=== PATIENT | female | born 1935 | race Two or more races ===

== ENCOUNTER 2020-09-26 10:15 | Inpatient (IN) | payer OTHER ==
[~2020-09-26] VITALS: Ht 167.6 cm; Wt 62.5 kg
[~2020-09-26 10:15] MED LIST: ERGO1CAP6 PO; HYDR25TA4 PO; LISI-646 PO; METF-370 PO; PRAV20TA3 OR
[2020-09-26] MEDS ORDERED: DexAMETHasone SOD PHOS 10MG/1ML VIAL INJ IV ONE (10:30)
[2020-09-26] MEDS ORDERED: SODIUM CHLORIDE 0.9% 1,000 ML IV ONE ×2 (10:30)
[2020-09-26] MEDS ORDERED: DOXYCYCLINE 100MG/250ML 250 ML IV ONE (10:30)
[2020-09-26 10:52] LABS: Basophils # (auto) 0 10 ^3/uL (0-0.2); Basophils % (auto) 0.3 % (0.0-2.0); Eosinophils # (auto) 0 10 ^3/uL (0-0.8); Eosinophils % (auto) 0.2 % (0.0-7.0); Hematocrit 42.7 % (36.0-46.0); Hemoglobin 14.3 g/dL (12.2-16.2); Lymphocytes # (auto) 1.2 10 ^3/uL (0.4-5.4); Lymphocytes % (auto) 16.6 % (10.0-50.0); Mean Corpuscular Hemoglobin 28.1 pg (28.0-32.0); Mean Corpuscular Hgb Conc. 33.5 g/dL (32.0-36.0); Mean Corpuscular Volume 83.9 fL (80.0-100.0); Monocytes # (auto) 1.1 10 ^3/uL (0-1.3); Neutrophils # (auto) 4.8 10 ^3/uL (1.6-8.6); Neutrophils % (auto) 67.9 % (37.0-80.0); Nucleated Red Blood Cells % 0.1 %; Platelet Count (auto) 232 10^3/uL (140-450); Red Blood Cells 5.09 10^6/uL (4.0-5.20); Red Cell Distribution Width 14.2 % (11.8-14.3)
[2020-09-26 11:13] LABS: Albumin 3.2 g/dL (3.4-5.0); Anion Gap 8 (5-15); Blood Urea Nitrogen 18 mg/dL (7-18); Calcium 8.6 mg/dL (8.5-10.1); Carbon Dioxide 23 mmol/L (21-32); Chloride 102 mmol/L (98-107); Glucose 98 mg/dL (74-106); Potassium 3.7 mmol/L (3.5-5.1); Sodium 133 mmol/L (136-145)
[2020-09-26 11:22] LABS: Alanine Aminotransferase 31 U/L (13-56); Alkaline Phosphatase 57 U/L (45-117); Aspartate Aminotransferase 35 U/L (15-37); BUN/Creatinine Ratio 16.5; Bilirubin, Total 0.9 mg/dL (0.2-1.0); CRP High Sensitivity 6.83 mg/dL (< 0.3); GFR African American 62 mL/min; GFR Non-African American 51 mL/min; Lactate Dehydrogenase 270 U/L (84-246); Total Protein 6.6 g/dL (6.4-8.2)
[2020-09-26] MEDS ORDERED: NITROGLYCERIN 0.4 MG SL TAB SL PRN ×2 (18:45→19:00)
[2020-09-26] MEDS ORDERED: MORPHINE SULF INJ 2 MG/ML SYRINGE 1ML IV PRN ×3 (18:45→19:00)
[2020-09-26] MEDS ORDERED: ASCO500T11 PO (18:53)
[2020-09-26] MEDS ORDERED: CHOL20007 PO (18:53)
[2020-09-26] MEDS ORDERED: ALBUAER3 IN (18:53)
[2020-09-26] MEDS ORDERED: HYDROcodone-ACET 5/325MG TAB PO PRN (19:00)
[2020-09-26] MEDS ORDERED: SODIUM CHLORIDE 0.9% 1,000 ML IV SCH (19:00)
[2020-09-26] MEDS ORDERED: ENOXAPARIN SOD 100 MG/1 ML SYRINGE SC ONE (19:00)
[2020-09-26] MEDS ORDERED: ONDANSETRON HCL 4 MG/2 ML VIAL IV PRN (19:00)
[2020-09-26] MEDS ORDERED: LORazepam 0.5 MG TAB PO PRN (19:00)
[2020-09-26] MEDS ORDERED: VANCOMYCIN PER PHARMACY 0 MG IV SCH (19:00)
[2020-09-26] MEDS ORDERED: ACETAMINOPHEN 325 MG TAB PO PRN (19:00)
[2020-09-26] MEDS ORDERED: THIAMINE 100mg/ml INJ (200mg/2ml VIAL) IV ONE (19:00)
[2020-09-26] MEDS ORDERED: ACETAMINOPHEN 500 MG TAB PO PRN (19:00)
[2020-09-26] MEDS ORDERED: ALUM & MAG HYDROX-SIMETH LIQ(MAALOX) 30 ML PO PRN (19:00)
[2020-09-26] MEDS ORDERED: DOCUSATE SOD 100 MG CAP PO PRN (19:00)
[2020-09-26] MEDS ORDERED: MEROPENEM 500MG IVPB 50 ML IV ONE (19:00)
[2020-09-26] MEDS: MEROPENEM 1GM IVPB 100 ML IV SCH (20:03)
[2020-09-26] MEDS: CHOLECALCIFEROL (VITD3) 2,000 UNIT CAP PO SCH (20:03)
[2020-09-26] MEDS: ZINC SULFATE 220mg CAP or TAB PO SCH (20:03)
[2020-09-26] MEDS: FAMOTIDINE (10MG/ML) 2ML VL IV SCH (20:03)
[2020-09-26] MEDS ORDERED: DEXTROSE (50%) 50ML SYRG IV PRN (20:45)
[2020-09-26] MEDS ORDERED: ATORVASTATIN 20 MG TAB PO SCH (22:00)
[2020-09-26] MEDS ORDERED: VANCOMYCIN 1GM/250ML 250 ML IV ONE (22:00)
[2020-09-26] MEDS: ACCU-CHEK COMFORT CURVE STRIP VI SCH (22:30)
[2020-09-26] MEDS: methylPREDNISolone SOD SUCC 40 MG/ML VL IV SCH (22:55)
[2020-09-26] MEDS: InsuLIN REG 1unit/0.01ml Soln (100units/ml) SC SCH (23:00)
[2020-09-26] MEDS: BUDESONIDE (INHALATION) 180 MCG IH IN SCH (23:21)
--- NOTE | 2020-09-26 23:30 | NUR ---
Telemetry admit from [facility]LEN[facility] admitted to Telemetry unit after SBAR received. Patient oriented to Elton mathis RN, unit, room 247, bed B, and unit policies regarding patient care and visiting hours. Patient now on continuous telemetry monitoring, tele box #2 and telemetry reading on arrival to unit is Afib 75. Patient VS taken, weighed by bedscale and encouraged to call if they need something. All questions and concerns addressed, patient verbalized understanding.
[2020-09-26 23:35] VITALS: BP 132/85
[2020-09-26] MEDS: hydrALAZINE HCL 20 MG/ML VL IV SCH (23:45)
[2020-09-27 01:38] VITALS: BP 132/85
[2020-09-27 01:49] LABS: Cholesterol 89 mg/dL (< 200); HDL Cholesterol 42 mg/dL (40-59); LDL Cholesterol 44 mg/dL (< 100); Triglycerides 73 mg/dL (< 150)
[2020-09-27 04:51] VITALS: BP 105/56
[2020-09-27] MEDS ORDERED: FUROSEMIDE 20 MG/2 ML VIAL IV SCH (06:00)
[2020-09-27] MEDS: ACCU-CHEK COMFORT CURVE STRIP VI SCH ×2 (06:29→11:27)
[2020-09-27] MEDS: InsuLIN REG 1unit/0.01ml Soln (100units/ml) SC SCH ×3 (06:29→11:33)
[2020-09-27 06:48] LABS: Potassium 3.9 mmol/L (3.5-5.1)
[2020-09-27] MEDS: BUDESONIDE (INHALATION) 180 MCG IH IN SCH (06:51)
[2020-09-27 06:55] LABS: Albumin 2.8 g/dL (3.4-5.0); Basophils # (auto) 0 10 ^3/uL (0-0.2); Basophils % (auto) 0.1 % (0.0-2.0); Bilirubin, Total 0.6 mg/dL (0.2-1.0); Calcium 8.4 mg/dL (8.5-10.1); Eosinophils # (auto) 0 10 ^3/uL (0-0.8); Hematocrit 41.6 % (36.0-46.0); Hemoglobin 14.2 g/dL (12.2-16.2); Lymphocytes # (auto) 0.7 10 ^3/uL (0.4-5.4); Lymphocytes % (auto) 11.1 % (10.0-50.0); Mean Corpuscular Hemoglobin 28.6 pg (28.0-32.0); Mean Corpuscular Hgb Conc. 34.2 g/dL (32.0-36.0); Mean Corpuscular Volume 83.6 fL (80.0-100.0); Monocytes # (auto) 0.6 10 ^3/uL (0-1.3); Monocytes % (auto) 10.7 % (0.0-12.0); Neutrophils # (auto) 4.7 10 ^3/uL (1.6-8.6); Neutrophils % (auto) 78.1 % (37.0-80.0); Nucleated Red Blood Cells % 0.1 %; Platelet Count (auto) 232 10^3/uL (140-450); Red Blood Cells 4.97 10^6/uL (4.0-5.20); Red Cell Distribution Width 14.1 % (11.8-14.3)
[2020-09-27] MEDS: MEROPENEM 1GM IVPB 100 ML IV SCH (06:59)
[2020-09-27] MEDS: methylPREDNISolone SOD SUCC 40 MG/ML VL IV SCH (06:59)
[2020-09-27] MEDS: hydrALAZINE HCL 20 MG/ML VL IV SCH ×2 (07:05→12:00)
--- NOTE | 2020-09-27 08:00 | NUR ---
Opening Shift Note Assumed care of patient, awake, alert and oriented X1, to self, confused but easily reoriented. No S/S of distress/SOB or pain. Tele# 1, sinus rhythm @ 71 bpm. IV to right antecubital, 20 gauge, patent and infusing 0.9% NS @ 75 ml/hr. Instructed on POC and to call for assist PRN, verbalized understanding. Bed locked, in lowest position, call light within reach, bed alarm on for patient safety, will continue to monitor for changes Q1hr and PRN.
--- NOTE | 2020-09-27 08:00 | NUR ---
O2 Patient on room air with sats @ 96%.
[2020-09-27 08:55] VITALS: BP 107/75
--- NOTE | 2020-09-27 09:30 | NUR ---
Call placed to Dr Izabela Austin to verify and clarify orders. New orders received and followed through.
[2020-09-27] MEDS: FAMOTIDINE (10MG/ML) 2ML VL IV SCH (09:34)
--- NOTE | 2020-09-27 09:45 | NUR ---
PULMONARY Call placed to Dr Fregoso, informed Dr Izabela Austin is requesting Pulmonary clearance. Per Dr Fregoso, patient is clear from Pulmonary but recommends patient to be sent home on a short steroid therapy. Communication order placed.
[2020-09-27] MEDS ORDERED: HCTZ 25 MG TAB PO SCH (10:00)
[2020-09-27] MEDS ORDERED: LISINOPRIL 20 MG TAB PO SCH (10:00)
[2020-09-27] MEDS ORDERED: MEROPENEM 500MG IVPB 50 ML IV SCH (10:00)
[2020-09-27] MEDS ORDERED: PRAVASTATIN SODIUM 20 MG TAB PO SCH ×2 (10:00→22:00)
[2020-09-27] MEDS ORDERED: ASPirin 81 mg TAB PO SCH (10:00)
[2020-09-27] MEDS ORDERED: ASCORBIC ACID 500 MG TAB PO SCH (10:00)
[2020-09-27] MEDS ORDERED: DOXYCYCLINE 100 MG TAB/CAP PO SCH (10:00)
[2020-09-27] MEDS ORDERED: ENOXAPARIN SOD 100 MG/1 ML SYRINGE SC SCH (10:00)
[2020-09-27] MEDS ORDERED: DexAMETHasone 4 MG TAB PO SCH (10:00)
[2020-09-27] MEDS ORDERED: THIAMINE 100mg/ml INJ (200mg/2ml VIAL) IV SCH (10:00)
[2020-09-27] MEDS: ZINC SULFATE 220mg CAP or TAB PO SCH (10:14)
[2020-09-27] MEDS: CHOLECALCIFEROL (VITD3) 2,000 UNIT CAP PO SCH ×2 (10:14→11:34)
[2020-09-27] MEDS ORDERED: ALBUTEROL SULF HFA 90MCG INH 200DOSE IN SCH ×2 (12:00→14:00)
--- NOTE | 2020-09-27 12:15 | NUR ---
ROUNDS Dr Izabela Austin at bedside for rounds, new orders received and followed through. Patient updated on plan of care, verbalized understanding.
[2020-09-27] MEDS ORDERED: HYDR25TA4 PO (12:42)
[2020-09-27] MEDS ORDERED: ALBUAER3 IN (12:42)
[2020-09-27] MEDS ORDERED: DEXA6TAB6 PO (12:42)
[2020-09-27] MEDS ORDERED: LISI-646 PO (12:42)
[2020-09-27] MEDS ORDERED: ZINC220T6 PO (12:42)
[2020-09-27] MEDS ORDERED: ASCO500T11 PO (12:42)
[2020-09-27] MEDS ORDERED: CHOL1CAP47 PO (12:42)
[2020-09-27] MEDS ORDERED: DOXY-338 PO (12:43)
[2020-09-27 13:00] VITALS: BP 122/57
--- NOTE | 2020-09-27 13:05 | NUR ---
[employer]TRAS[employer] line service technician at bedside.
[2020-09-27] MEDS ORDERED: IOHEXOL 350 MG/ML 100ML IJ ONE (14:54)
--- NOTE | 2020-09-27 15:43 | NUR ---
Assessment Patient is an 85-year-old female who is alert and oriented. Prior to admission patient lived home with family and functioned independently. Patient can care for her own ADL's. Patient does not use any medical equipment now. Per patient she will return home to her prior living arrangements post discharge and family will transport patient home. Advised patient there is a social service consult for home health safety evaluation and pulse Ox check daily for the next 3 days. Informed patient she has the right to participate in all discharge planning. Patient verbalized understanding and agreed to discharge plan. Faxed clinical information to [facility] and [facility] medical group. Per Henny with [facility] patient has been accepted and service to start within 24-48hrs upon d.c . Addendum: 09/27/20 at 1547 by MAXIMO VALADEZ Amended: Links added.
[2020-09-27 17:38] VITALS: BP 122/57
--- NOTE | 2020-09-27 18:16 | NUR ---
Discharge instructions given as ordered. Encourage to follow up with PMD as instructed. All questions and concerns addressed. Patient verbalized understanding. Medication reconciliation form completed and copy given to patient. IV removed with catheter intact, pressure dressing applied. Telemetry unit returned to ICU. Patient awaiting transportation.
--- NOTE | 2020-09-27 18:35 | NUR ---
Patient taken to vehicle via wheelchair with all personal belongings, accompanied by staff and family member. No distress noted at time of departure.
== END 2020-09-27 18:38 | disposition home health service (06) | DRG 177 ==
LOC: ER 10:15 → EDBD 10:15 → TELE-EAST 19:10
PROVIDERS: ADMIT Hospitalist; ATTEND Internal Medicine
DX: U07.1 COVID-19 (principal); J12.89 Other viral pneumonia; J96.01 Acute respiratory failure with hypoxia; E87.1 Hypo-osmolality and hyponatremia; E44.1 Mild protein-calorie malnutrition; J44.0 Chronic obstructive pulmonary disease with (acute) lower respiratory infection; N17.9 Acute kidney failure, unspecified; I12.9 Hypertensive chronic kidney disease with stage 1 through stage 4 chronic kidney disease, or unspecified chronic kidney disease; E78.5 Hyperlipidemia, unspecified; E11.22 Type 2 diabetes mellitus with diabetic chronic kidney disease; F03.90 Unspecified dementia, unspecified severity, without behavioral disturbance, psychotic disturbance, mood disturbance, and anxiety; N18.2 Chronic kidney disease, stage 2 (mild); K57.90 Diverticulosis of intestine, part unspecified, without perforation or abscess without bleeding; Z88.0 Allergy status to penicillin; Z79.899 Other long term (current) drug therapy; Z83.3 Family history of diabetes mellitus; Z80.9 Family history of malignant neoplasm, unspecified; Z79.4 Long term (current) use of insulin; Z68.27 Body mass index [BMI] 27.0-27.9, adult
CPT/HCPCS: 36415; 36600; 71045; 71275; 80053; 80061; 80202; 82728; 82805; 82962; 83036; 83605; 83615; 83735; 83880; 84443; 84484; 85025; 85379; 86141; 87040; 87426; 93005; 93970; 94640; 96361; 96365; 96375; G0378; J1100; J1815; J2185; J3490